=== PATIENT | male | born 2000 | race African-American/Black ===

== ENCOUNTER → 2021-01-20 09:30 | Outpatient (BNVA) | payer OTHER, SELFPAY | PROVIDERS: Family Provider Nurse Practitioner Family; PCP Nurse Practitioner; Visit Provider Nurse Practitioner Family | DX: Z20.822 Contact with and (suspected) exposure to COVID-19 (principal) | CPT/HCPCS: 87635 ==

== ENCOUNTER 2021-08-07 09:36 | Emergency (ER) | payer SELFPAY ==
[2021-08-07 10:02] VITALS: BP 144/60; PULSE 57; RESP 15; TEMP 36.5; O2SAT 99; BMI 21.7
[2021-08-07 10:35] LABS: Basophils % 0.8 %; Eosinophils % 0.8 %; Hematocrit 46.1 % (42.0-52.0); Hemoglobin 15.8 g/dL (11.7-16.6); Lymphocytes # 1.3 10^3/uL (1.5-6.5); Lymphocytes % 33.8 %; Mean Corpuscular HGB Conc 34.3 g/dL (30.0-36.0); Mean Corpuscular Hemoglobin 30.3 pg (28.0-34.0); Mean Corpuscular Volume 88.5 fl (80-94); Mean Platelet Volume 9.6 fL (7.4-10.4); Monocytes # 0.3 10^3/uL (0.2-0.9); Monocytes % 7.1 %; Neutrophils # 2.29 10^3/uL (1.8-8.0); Neutrophils % 57.5 %; Nucleated Red Blood Cells % 0 %; Platelet Count 353 10^3/cmm (130-400); Red Blood Count 5.21 10^6/uL (4.1-5.3); Red Cell Distribution Width 12.2 % (12.1-15.1)
[2021-08-07 10:36] VITALS: PULSE 60; RESP 15; O2SAT 98
--- NOTE | 2021-08-07 10:39 | ED_ITS ---
HPI - Abdominal Pain General: Chief Complaint: Abdominal Pain Stated Complaint: BLOOD IN STOOL Time Seen by Provider: 08/07/21 09:37 History of Present Illness: HPI narrative: 20-year-old male presents emergency room complaining of rectal bleeding started earlier today. He had bright red blood in the stool. He states he not had that before. He has had hematuria which was found to be benign in the past. He denies any fever sweats chills dysuria urgency or frequency. He has had a little bit of nausea and some abdominal pain but abdominal discomfort is diffuse. No previous abdominal surgeries. MD elicited complaint: abdominal pain Onset (ago): minute(s) Pain Consistency: intermittent Location: Diffuse Severity: mild Quality: cramping Radiation: none Migration to: no migration Exacerbating factors: nothing Relieving factors: nothing Associated Symptoms: Reports anorexia, bloating, GI cramping, hematochezia, nausea and poor appetite; Denies belching, change in bowel habits, change in stool character, chills, coffee ground emesis, constipation, diarrhea, dyspepsia, dysuria, excessive flat us, fever(s), heartburn, hematuria, hematemesis, fecal incontinence, loose stools, melena, syncope and vomiting Review of Systems Const: Denies: fever(s) or chills ENMT: Denies: throat pain, ear or mastoid pain, nasal discharge or nasal congestion Card: Denies: syncope Resp: Denies: dyspnea, productive cough or non-productive cough GI: Reports: nausea, bloating, GI cramping and hematochezia; Denies: vomiting, hematemesis, coffee ground emesis, heartburn, diarrhea, constipation, belching, excessive flatus, fecal incontinence, change in bowel habits, change in stool character or melena : Denies: dysuria or hematuria Skin/Breast: Denies: rash or pruritus PFSH ED PFSH: Medical History (Updated 08/07/21 @ 12:44 by Eduardo Kim DO) History of MRSA infection Seasonal allergies Surgical History No pertinent past surgical history Family History Other Cancer Diabetes Heart disease Social History (Reviewed 08/07/21 @ 10:41 by JORDEN Jordan Smoking and tobacco status: current every day smoker Second hand smoke exposure: Yes Smoking risk assessment/counseling performed?: Yes Alcohol intake: never Adopted: No Caregiver/support person: No Lives independently: Yes Household members: significant other Housing: House Marital status: Single Number of children: 0 service: No Current occupational status: employed Current occupation: [employer] Pets and animals: Yes Pets & animals: cat(s) and dog(s) History of recent travel: No Sexually active: Yes Current gender identity: Male Physical Exam Const: COMMON NORMALS: no acute distress GENERAL APPEARANCE: cooperative and comfortable ORIENTATION/CONSCIOUSNESS: Yes awake, Yes oriented to person, Yes oriented to place and Yes oriented to time HENMT: COMMON NORMALS: normocephalic, atraumatic, hearing grossly normal bilaterally, external ears normal, EAC's normal, TM's normal bilaterally, Normal nasal mucous membranes and turbinates present, moist oral mucous membranes and oropharynx normal HEAD & SCALP: normocephalic and atraumatic NOSE: Normal nasal mucous membranes and turbinates present EXTERNAL EAR: Yes external ears normal EXTERNAL AUDITORY CANAL: EAC's normal TYMPANIC MEMBRANE: TM's normal bilaterally Eye: COMMON NORMALS: Equal, round and reactive pupils present, EOMs intact bilaterally, conjunctivae normal and no scleral icterus CONJUNCTIVA: Yes c onjunctivae normal PUPIL: Yes Equal, round and reactive pupils present Neck/C-Spine: COMMON NORMALS: full ROM, no lymphadenopathy, supple and no JVD Lymph: LYMPHATIC: no lymphadenopathy noted and no lymphedema noted Resp: COMMON NORMALS: normal respiratory effort, No retractions, No use of accessory muscles and clear to auscultation bilaterally AUSCULTATION: clear to auscultation bilaterally Cardio: COMMON NORMALS: no JVD, regular rate, regular rhythm and No murmurs present (Cardio) RATE: regular rate RHYTHM: regular rhythm GI: COMMON NORMALS: Soft to palpation and No hepatosplenomegaly present AUSCULTATION: Yes normoactive bowel sounds PALPATION: Yes Soft to palpation, No Tenderness to palpation present (GI), No Guarding due to palpation present (GI) and Yes No hepatosplenomegaly present RECTAL EXAM: Yes Visual inspection abnormal and Yes hemorrhoids (9 o'clock position) OTHER: No bright red blood or active bleeding at the time of rectal exam. There is a mildly inflamed hemorrhoid noted. Extremity: COMMON NORMALS: normal to inspection, capillary refill normal, no clubbing, cyanosis or edema, no calf tenderness and no pedal edema Neuro: SENSORIUM/ORIENTATION: Yes oriented to person, Yes oriented to place and Yes oriented to time Skin: COMMON NORMALS: no rashes or lesions noted GENERAL SKIN EXAM: no rashes or lesions noted Course Vital Signs: Vital signs: Vital Signs Temperature 97.7 F 08/07/21 10:02 Pulse Rate 60 08/07/21 10:36 Respiratory Rate 15 08/07/21 10:36 Blood Pressure 144/60 08/07/21 10:02 Pulse Oximetry 98 08/07/21 10:36 MDM - Abdominal Pain MDM Narrative: Medical decision making narrative: Abdominal exam is benign. Rectal exam as above. Hemoglobin is good discharge home put on Cipro and Flagyl for now also use Anusol follow-up with surgery for possible flex sig or colonoscopy if symptoms worsen or change return. Lab Data: Labs: Lab Results 08/07/21 08/07/21 08/07/21 10:15 10:15 11:15 WBC 4.0 10^3/uL L 10^ 3/uL (4.5-13.0) RBC 5.21 10^6/uL 10^6 /uL (4.1-5.3) Hgb 15.8 g/dL g/dL (11.7-16.6) Hct 46.1 % % (42.0-52.0) MCV 88.5 fl fl (80-94) MCH 30.3 pg pg (28.0-34.0) MCHC 34.3 g/dL g/dL (30.0-36.0) RDW 12.2 % % (12.1-15.1) Plt Count 353 10^3/cmm 10^3 /cmm (130-400) MPV 9.6 fL fL (7.4-10.4) Neut % (Auto) 57.5 % % Lymph % (Auto) 33.8 % % [place] % (Auto) 7.1 % % Eos % (Auto) 0.8 % % Baso % (Auto) 0.8 % % Neut # (Auto) 2.29 10^3/uL 10^3 /uL (1.8-8.0) Lymph # (Auto) 1.3 10^3/uL L 10^ 3/uL (1.5-6.5) [place] # (Auto) 0.3 10^3/uL 10^3/ uL (0.2-0.9) Eos # (Auto) 0.0 10^3/uL 10^3/ uL (0.0-0.8) Baso # (Auto) 0.0 10^3/uL 10^3/ uL (0.0-0.1) Nucleated RBC % (a uto) 0 % % Nucleated RBCs # 0.0 /100WBC /100W BC Sodium Cancelled 137 mmol/L mmol/L (136-145) Potassium Cancelled 4.0 mmol/L mmol/L (3.5-5.1) Chloride Cancelled 102 mmol/L mmol/L (98-107) Carbon Dioxide Cancelled 26 mmol/L mmol/L (22-29) Anion Gap Cancelled 13.0 (5-19) BUN Cancelled 15 mg/dL mg/dL (6-20) Creatinine Cancelled 0.7 mg/dL mg/dL (0.7-1.2) GFR Calculation Cancelled 174.0 mL/min H mL /min (90-130) Glucose Cancelled 83 mg/dL mg/dL (65-115) Calculated Osmolal ity Cancelled 284 mOsm/kg L mOs m/kg (285-295) Calcium Cancelled 9.3 mg/dL mg/dL (8.5-10.5) Total Bilirubin Cancelled 0.5 mg/dL mg/dL (0.15-1.2) AST Cancelled 21 U/L U/L (0-40) ALT Cancelled 22 U/L U/L (0-41) Alkaline Phosphata se Cancelled 74 IU/L IU/L (40-130) Total Protein Cancelled 7.1 g/dL g/dL (6.6-8.7) Albumin Cancelled 4.4 g/dL g/dL (3.5-5.2) Globulin Cancelled 2.7 g/dL g/dL (1.3-4.6) Discharge Plan Discharge Patient Disposition: Home Clinical Impression: Bleeding hemorrhoids, Colitis Condition: Stable Prescriptions: New ciprofloxacin HCl 500 mg tablet 500 mg PO BID Qty: 14 RF: 0 Flagyl 500 mg tablet 500 mg PO BID 7 Days Qty: 14 RF: 0 Anusol-HC 2.5 % cream with perineal applicator 1 applic [place] Q6H Qty: 30 RF: 0 Discharge Orders: Discharge ED (Routine); Ordered 08/07/21 Ordered By: Eduardo Kim Referrals: Edson Lakhani, [employer] PUMPER-C [Primary Care Provider] - Discharge Diet: Clear Liquid Discharge Activity: Increase activity as tolerated Patient Instructions: Opioid Safety Activity Restrictions/Additional Instructions: manager mall will make arrangements for general surgery to see you for possible flex sig or colonoscopy. Coding Level of Care Code ED Senior Bi Architect for Chg Fwd Exam Comprehensive
[2021-08-07 11:51] LABS: Alanine Aminotransferase 22 U/L (0-41); Albumin Level 4.4 g/dL (3.5-5.2); Alkaline Phosphatase 74 IU/L (40-130); Aspartate Amino Transferase 21 U/L (0-40); Blood Urea Nitrogen 15 mg/dL (6-20); Calcium 9.3 mg/dL (8.5-10.5); Carbon Dioxide 26 mmol/L (22-29); Chloride 102 mmol/L (98-107); Creatinine Clr Calc Pharmacy 149.4619; Globulin 2.7 g/dL (1.3-4.6); Glucose 83 mg/dL (65-115); Osmolality Calculated 284 mOsm/kg (285-295); Sodium 137 mmol/L (136-145); Total Bilirubin 0.5 mg/dL (0.15-1.2); Total Protein 7.1 g/dL (6.6-8.7)
[2021-08-07 13:02] VITALS: BP 125/54; PULSE 54; RESP 16; O2SAT 98
[2021-08-07 13:34] LABS: Add Urine Microscopic? NO; Blood Urine Neg (Negative); Glucose Urine UA Norm (Normal); Ketones Urine 1+ (Negative); Nitrate Urine Negative (Negative); Protein Urine Neg (Negative); Specific Gravity, Urine 1.025 (1.005-1.030); Urine Appearance Clear (CLEAR); Urine Color Amber (Yellow); pH Urine 5 (5-7)
[2021-08-07 13:35] LABS: Bilirubin Urine Neg (Negative); Charge for UA Resulting for Rev; Leukocyte Esterase Urine Negative (Negative); Urobilinogen Urine 1 mg/dL (Negative)
== END 2021-08-07 13:04 | disposition home or self-care (01) ==
PROVIDERS: Emergency Provider Family Medicine; PCP Nurse Practitioner
DX: K64.9 Unspecified hemorrhoids (principal); K52.9 Noninfective gastroenteritis and colitis, unspecified; F17.210 Nicotine dependence, cigarettes, uncomplicated
CPT/HCPCS: 36415; 80053; 81003; 85025; 99283

== ENCOUNTER → 2021-10-06 15:19 | Outpatient (BNVA) | payer OTHER, SELFPAY | PROVIDERS: PCP Nurse Practitioner; Visit Provider Registered Nurse Neonatal Intensive Care | DX: Z20.822 Contact with and (suspected) exposure to COVID-19 (principal) | CPT/HCPCS: 87635 ==

== ENCOUNTER 2023-04-06 16:46 | Emergency (ER) | payer SELFPAY ==
[2023-04-06 17:04] VITALS: BP 119/74; PULSE 60; RESP 16; TEMP 36.7; O2SAT 100; BMI 29.0
[2023-04-06 17:21] LABS: INR 1.09 (0.8-1.2)
[2023-04-06 17:28] LABS: Basophils % 0.7 %; Eosinophils # 0.1 10^3/uL (0.0-0.8); Eosinophils % 2.2 %; Hematocrit 41.4 % (42.0-52.0); Hemoglobin 14.1 g/dL (11.7-16.6); Lymphocytes # 1.8 10^3/uL (0.8-4.8); Lymphocytes % 33.7 %; Mean Corpuscular HGB Conc 34.1 g/dL (30.0-36.0); Mean Corpuscular Hemoglobin 30.6 pg (28.0-34.0); Mean Corpuscular Volume 89.8 fl (80-94); Mean Platelet Volume 9.5 fL (7.4-10.4); Monocytes # 0.5 10^3/uL (0.2-0.9); Monocytes % 9.2 %; Neutrophils # 2.88 10^3/uL (1.8-7.7); Nucleated Red Blood Cells % 0 %; Platelet Count 264 10^3/cmm (130-400); Red Blood Count 4.61 10^6/uL (4.1-5.3); Red Cell Distribution Width 12.4 % (12.1-15.1); White Blood Count 5.3 10^3/uL (4.0-10.0)
[2023-04-06 17:29] LABS: Alanine Aminotransferase 13 U/L (0-41); Albumin Level 4.5 g/dL (3.5-5.2); Alkaline Phosphatase 73 U/L (40-130); Anion Gap 14.8 (5-19); Aspartate Amino Transferase 18 U/L (0-40); Blood Urea Nitrogen 21 mg/dL (6-20); Calcium 8.5 mg/dL (8.5-10.5); Carbon Dioxide 25 mmol/L (22-29); Chloride 103 mmol/L (98-107); Globulin 2.8 g/dL (1.3-4.6); Glomerular Filtration Rate 146.3 mL/min (90-130); Glucose 72 mg/dL (65-115); Osmolality Calculated 290 mOsm/kg (285-295); Potassium 3.8 mmol/L (3.5-5.1); Sodium 139 mmol/L (136-145); Total Bilirubin 0.3 mg/dL (0.15-1.2); Total Protein 7.3 g/dL (6.6-8.7)
--- NOTE | 2023-04-06 17:32 | ED_ITS ---
HPI - General Adult General: Chief complaint: General Medical Stated complaint: bleeding from rectum Time Seen by Provider: 04/06/23 17:12 Source: patient Mode of arrival: ambulatory Limitations: no limitations History of Present Illness: 22-year-old male who states he has noticed some blood in his stool over the last 3 to 4 days states been bright red and has had some bleeding from his rectum into his underwear he states he had a history of a hemorrhoid he is unsure if he has 1 currently denies any pain. He has had no vomiting or diarrhea he does have constipation at times. Associated symptoms: Deny chest pain, dyspnea, headache(s), nausea, rash or vomiting Review of Systems Const: Denies: fever(s), chills, body aches or change in appetite ENMT: Denies: throat pain or dental pain Card: Denies: chest pain Resp: Denies: dyspnea GI: Reports: hematochezia; Denies: abdominal pain, nausea or vomiting Musc: Denies: neck pain or back pain Skin/Breast: Denies: rash Neuro: Denies: headache(s) PFSH ED PFSH: Medical History (Updated 04/06/23 @ 17:34 by Juan Jose Camacho MD) History of MRSA infection Seasonal allergies Surgical History No pertinent past surgical history Family History Other Cancer Diabetes Heart disease Social History Smoking and tobacco status: current every day smoker Second hand smoke exposure: Yes Smoking risk assessment/counseling performed?: Yes Alcohol intake: never Substance/Drug Use: never Adopted: No Caregiver/support person: No Lives independently: Yes Household members: significant other Housing: House Marital status: Single Number of children: 0 service: No Current occupational status: employed Current occupation: [employer] Pets and animals: Yes Pets & animals: cat(s) and dog(s) Sexually active: Yes Do you think of yourself as: Straight/Heterosexual Current gender identity: Male Physical Exam Const: COMMON NORMALS: no acute distress and patient oriented x3 HENMT: COMMON NORMALS: normocephalic and atraumatic HEAD & SCALP: normocephalic and atraumatic Eye: COMMON NORMALS: conjunctivae normal CONJUNCTIVA: Yes conjunctivae normal Neck/C-Spine: COMMON NORMALS: supple Chest: COMMONS NORMALS: normal inspection of the chest Resp: COMMON NORMALS: normal respiratory effort Cardio: COMMON NORMALS: regular rate RATE: regular rate GI: COMMON NORMALS: Normal to inspection, nondistended, normoactive bowel sounds present, Soft to palpation and non-tender INSPECTION: Yes normal to inspection PALPATION: Yes Soft to palpation OTHER: Hemorrhoid noted on rectal exam is nonthrombosed Extremity: COMMON NORMALS: normal to inspection Neuro: COMMON NORMALS: patient oriented x3 Psych: COMMON NORMALS: mental status grossly normal Skin: COMMON NORMALS: no rashes or lesions noted GENERAL SKIN EXAM: no rashes or lesions noted Course Vital Signs: Vital signs: Vital Signs Temperature 98.0 F 04/06/23 17:04 Pulse Rate 60 04/06/23 17:04 Respiratory Rate 16 04/06/23 17:04 Blood Pressure 119/74 04/06/23 17:04 Pulse Oximetry 100 04/06/23 17:04 Oxygen Delivery Me thod Room Air 04/06/23 17:04 [facility] - General Adult Medical Decision Making Patient presents here with hemorrhoid is not thrombosed he had some bleeding from it his hemoglobin here is normal we will start him on Proctofoam along with Colace he is to follow-up with his PCP along with Dr. Strong return if worsening he understands agrees to plan. Medical Records I reviewed the patient's medical records. Lab Data I reviewed the patient's lab results. 04/06/23 17:03 04/06/23 17:03 Laboratory Results WBC 5.3 10^3/uL (4.0-10.0) 04/06/23 17:03 RBC 4.61 10^6/uL (4.1-5.3) 04/06/23 17:03 Hgb 14.1 g/dL (11.7-16.6) 04/06/23 17:03 Hct 41.4 % (42.0-52.0) L 04/06/23 17:03 MCV 89.8 fl (80-94) 04/06/23 17:03 MCH 30.6 pg (28.0-34.0) 04/06/23 17:03 MCHC 34.1 g/dL (30.0-36.0) 04/06/23 17:03 RDW 12.4 % (12.1-15.1) 04/06/23 17:03 Plt Count 264 10^3/cmm (130-400) 04/06/23 17:03 MPV 9.5 fL (7.4-10.4) 04/06/23 17:03 Neut % (Auto) 54.0 % 04/06/23 17:03 Lymph % (Auto) 33.7 % 04/06/23 17:03 [place] % (Auto) 9.2 % 04/06/23 17:03 Eos % (Auto) 2.2 % 04/06/23 17:03 Baso % (Auto) 0.7 % 04/06/23 17:03 Neut # (Auto) 2.88 10^3/uL (1.8-7.7) 04/06/23 17:03 Lymph # (Auto) 1.8 10^3/uL (0.8-4.8) 04/06/23 17:03 [place] # (Auto) 0.5 10^3/uL (0.2-0.9) 04/06/23 17:03 Eos # (Auto) 0.1 10^3/uL (0.0-0.8) 04/06/23 17:03 Baso # (Auto) 0.0 10^3/uL (0.0-0.1) 04/06/23 17:03 Nucleated RBC % (auto) 0 % 04/06/23 17:03 Nucleated RBCs # 0.0 /100WBC 04/06/23 17:03 PT 14.40 SECONDS (12.1-14.9) 04/06/23 17:03 INR 1.09 (0.8-1.2) 04/06/23 17:03 Sodium 139 mmol/L (136-145) 04/06/23 17:03 Potassium 3.8 mmol/L (3.5-5.1) 04/06/23 17:03 Chloride 103 mmol/L (98-107) 04/06/23 17:03 Carbon Dioxide 25 mmol/L (22-29) 04/06/23 17:03 Anion Gap 14.8 (5-19) 04/06/23 17:03 BUN 21 mg/dL (6-20) H 04/06/23 17:03 Creatinine 0.8 mg/dL (0.7-1.2) 04/06/23 17:03 GFR Calculation 146.3 mL/min (90-130) H 04/06/23 17:03 Glucose 72 mg/dL (65-115) 04/06/23 17:03 Calculated Osmolality 290 mOsm/kg (285-295) 04/06/23 17:03 Calcium 8.5 mg/dL (8.5-10.5) 04/06/23 17:03 Total Bilirubin 0.3 mg/dL (0.15-1.2) 04/06/23 17:03 AST 18 U/L (0-40) 04/06/23 17:03 ALT 13 U/L (0-41) 04/06/23 17:03 Alkaline Phosphatase 73 U/L (40-130) 04/06/23 17:03 Total Protein 7.3 g/dL (6.6-8.7) 04/06/23 17:03 Albumin 4.5 g/dL (3.5-5.2) 04/06/23 17:03 Globulin 2.8 g/dL (1.3-4.6) 04/06/23 17:03 Discharge Plan Discharge Patient Disposition: Home Clinical Impression: Bleeding hemorrhoid Condition: Stable Prescriptions: New Proctofoam HC 1-1 % foam 1 applic [place] TID PRN (Reason: hemorrhoids) Qty: 10 0RF docusate sodium [Colace] 100 mg capsule 100 mg PO BID Qty: 30 0RF Discharge Orders: Discharge ED (Routine); Ordered 04/06/23 Ordered By: Juan Jose Camacho Referrals: Ananth Strong DO [Physician] - 1-3 days Edson Lakhani, RETAIL DIRECTOR-C [Primary Care Provider] - 1-3 days Discharge Diet: Advance as tolerated Discharge Activity: Resume usual activity Patient Instructions: Hemorrhoids (ED) Coding Level of Care Code ED Making Department Preparer for Ireneg Marcella
[2023-04-06 17:40] VITALS: BP 125/76; PULSE 70; RESP 16; O2SAT 100
== END 2023-04-06 17:41 | disposition home or self-care (01) ==
PROVIDERS: Emergency Provider Emergency Medicine; PCP Nurse Practitioner
DX: K64.9 Unspecified hemorrhoids (principal); F17.210 Nicotine dependence, cigarettes, uncomplicated
CPT/HCPCS: 36415; 80053; 85025; 85610; 99283

== ENCOUNTER 2024-09-08 20:46 | Emergency (ER) | payer OTHER, MEDICAID, SELFPAY ==
[2024-09-08 20:54] VITALS: BP 143/85; PULSE 66; RESP 14; TEMP 36.7; O2SAT 99
--- NOTE | 2024-09-08 21:02 | W.ED.DENTAL ---
HPI - Dental/Oral General: Chief complaint: Dental/Oral Stated complaint: Mouth Pain Time Seen by Provider: 09/08/24 20:58 Source: patient Mode of arrival: ambulatory Limitations: no limitations History of Present Illness: Patient is a 24-year-old male here for dental/mouth pain over the past 1 to 2 days. He states he has a longstanding history of dental pain. He has not had any acute injury or trauma. He has not noticed any swelling to his mouth or face. He does not have any difficulty eating, swallowing, breathing, or controlling secretions. No fevers. He states he has plans to reach out to a dentist next week to schedule an appointment. MD Complaint: tooth pain Onset (ago): day(s) Duration: constant Severity: moderate Relieving factors: nothing Exacerbating factors: nothing Context: history of dental caries and poor dental care Associated symptoms: Reports no associated symptoms; Denies fever(s) or odynophagia Treatment prior to arrival: none and topical analgesic Related Data Previous Rx's Medication Instructions Recorded cetirizine 10 mg tablet 10 mg PO DAILY #30 tabs 07/17/24 fluticasone propionate 50 2 spray intranasal DAILY #16 grams 07/17/24 mcg/actuation nasal spray,suspension (Flonase Allergy Relief) chlorhexidine gluconate 0.12 % 15 ml buccal BID #473 mL 09/08/24 mouthwash (Peridex) penicillin V potassium 500 mg 500 mg PO Q8H 7 days #21 tabs 09/08/24 tablet Allergies Allergy/AdvReac Type Severity Reaction Status Date / Time No Known Allergies Allergy Verified 09/08/24 20:57 Review of Systems Const: Denies: fever(s) ENMT: Reports: mouth pain and dental pain; Denies: throat pain, enlarged tonsils, odynophagia, hoarseness, swelling of lips/tongue, oral sores or bleeding gums Musc: Denies: neck pain Neuro: Denies: headache(s) PFSH ED PFSH: Medical History Seasonal allergies History of MRSA infection Surgical History No pertinent past surgical history Family History Other Cancer Diabetes Heart disease Social History Smoking and tobacco/nicotine status: unknown if used tobacco/nicotine Second hand smoke exposure: Yes Alcohol intake: never Substance/Drug Use: never Adopted: No Caregiver/support person: No Lives independently: Yes Household members: significant other Housing: House Marital status: Single Number of children: 0 service: No Current occupational status: employed Current occupation: [employer] Pets and animals: Yes Pets & animals: cat(s) and dog(s) Sexually active: Yes Do you think of yourself as: Straight/Heterosexual Current gender identity: Male Physical Exam Const: COMMON NORMALS: no acute distress, average body habitus, patient oriented x3, no limitations, alert and well nourished HENMT: MOUTH: lip normal, tongue normal, Normal salivary glands and ducts present and other (floor of mouth is soft) TEETH & GINGIVA: Yes caries, Yes poor dentition and Yes other (widespread dental disease; significant gingivitis) THROAT: posterior oropharynx normal and tonsils normal OTHER: 16 cracked/broken, 17 impacted Neck/C-Spine: GENERAL: No anterior neck swelling and No submandibular swelling Neuro: COMMON NORMALS: patient oriented x3 SENSORIUM/ORIENTATION: Yes alert Course Vital Signs: Vital signs: Vital Signs Temperature 98.0 F 09/08/24 20:54 Pulse Rate 66 09/08/24 20:54 Respiratory Rate 14 09/08/24 20:54 Blood Pressure 143/85 09/08/24 20:54 Pulse Oximetry 99 09/08/24 20:54 Oxygen Delivery Me thod Room Air 09/08/24 20:54 MDM - Dental/Oral Medical Decision Making Patient will be treated with antibiotics and Peridex mouth rinse. Recommend prompt dental follow-up. Return to ED precautions given. Medical Records I reviewed the patient's medical records. No radiology studies performed this visit Discharge Plan Discharge Patient Disposition: Home Clinical Impression: Dental caries, Toothache, Acute gingivitis, plaque induced Condition: Stable Prescriptions: New penicillin V potassium 500 mg tablet 500 mg PO Q8H 7 Days Qty: 21 0RF chlorhexidine gluconate [Peridex] 0.12 % mouthwash 15 ml BUCCAL BID Qty: 473 0RF Rx Instructions: Swish in mouth for 60 seconds then spit No Action fluticasone propionate [Flonase Allergy Relief] 50 mcg/actuation spray,suspension 2 spray intranasal DAILY Qty: 16 0RF Rx Instructions: administer into each nostril cetirizine 10 mg tablet 10 mg PO DAILY Qty: 30 0RF Discharge Orders: Discharge ED (Routine); Ordered 09/08/24 Ordered By: Lacey Arenas Referrals: Edson Lakhani, DYE BLENDER-C [Primary Care Provider] - Patient Instructions: Dental Caries (Cavities), Toothache (ED), Mouth Care (ED) Activity Restrictions/Additional Instructions: As we discussed, please follow-up with a dentist to soon as possible further evaluation and treatment of your dental pain. I hope you begin to feel better soon. Coding Level of Care Code ED Basketball Commentator for Carol Naranjo
== END 2024-09-08 21:29 | disposition home or self-care (01) ==
PROVIDERS: Emergency Provider Physician Assistant; PCP Nurse Practitioner
DX: K02.9 Dental caries, unspecified (principal); K05.00 Acute gingivitis, plaque induced
CPT/HCPCS: 99283